=== PATIENT | male | born 1945 | race Caucasian/White ===

== ENCOUNTER 2017-11-04 12:29 | Emergency (ER) | payer OTHER ==
[~2017-11-04] VITALS: Ht 167.6 cm; Wt 86.2 kg
[2017-11-04 12:34] VITALS: Ht 167.6 cm; Wt 86.2 kg
[2017-11-04 15:12] VITALS: BP 173/82
== END 2017-11-04 15:12 | disposition home or self-care (01) ==
LOC: ED 12:29
DX: I10 Essential (primary) hypertension (principal)